=== PATIENT | female | born 1980 | race Hispanic/Latino ===

== ENCOUNTER 2022-07-29 12:58 | Emergency (ER) | payer MEDICARE, OTHER ==
[~2022-07-29] VITALS: Ht 154.9 cm; Wt 199.6 kg
[2022-07-29 13:00] VITALS: O2SAT 95
[2022-07-29] MEDS ORDERED: SODIUM CHLORIDE 0.9% 1000ML 1,000 ML IV STA (13:16)
[2022-07-29] MEDS ORDERED: ONDANSETRON HCL INJ 2MG/ML 2ML 2 MG/ML VIAL IV STA (13:23)
[2022-07-29] MEDS ORDERED: DICYCLOMINE HCL 20 MG/2 ML VIAL IM ONE (13:30)
[2022-07-29] MEDS ORDERED: ONDANSETRON HCL INJ 2MG/ML 2ML 2 MG/ML VIAL IV PRN (13:30)
[2022-07-29 13:40] LABS: BASOPHILS % 0.4 % (0.0-1.0); EOSINOPHILS # (AUTO) 0.2 (0.0-0.4); EOSINOPHILS % 2.8 % (0.0-6.0); HEMATOCRIT 31.6 % (34.2-44.1); HEMOGLOBIN 9.1 g/dL (12.0-16.0); LYMPHOCYTES # (AUTO) 1.9 (1.0-3.2); MEAN CORPUSCULAR HGB CONC 28.8 g/dL (31-35); MEAN CORPUSCULAR VOLUME 69.5 fL (81-99); MONOCYTES # (AUTO) 0.6 (0.2-0.8); NEUTROPHILS # (AUTO) 5.7 (2.1-6.9); NEUTROPHILS % 67.3 % (38.7-80.0); PLATELET COUNT 303 x10e3/uL (140-360); RED BLOOD COUNT 4.55 x10e6/uL (3.6-5.1); RED CELL DISTRIBUTION WIDTH 19.9 % (11.7-14.4)
[2022-07-29 13:58] LABS: ALBUMIN 2.9 g/dL (3.5-5.0); ALBUMIN/GLOBULIN RATIO 0.6 (0.8-2.0); ANION GAP 11.7 mmol/L (8-16); CALCIUM 8.2 mg/dL (8.4-10.2); CREATININE, SERUM 0.67 mg/dL (0.57-1.11); POTASSIUM 3.7 mmol/L (3.5-5.1)
[2022-07-29] MEDS ORDERED: IOPAMIDOL 370 MG/ML 100 ML INFUS..BTL INJ ONE (14:11)
[2022-07-29 16:21] LABS: CLARITY,URINE TURBID (CLEAR); COLOR,URINE RED (YELLOW); KETONES,URINE NEGATIVE (NEGATIVE); LEUKOCYTE ESTERASE ,URINE NEGATIVE (NEGATIVE); NITRITE,URINE NEGATIVE (NEGATIVE); PROTEIN,URINE DIPSTICK 1+ (NEGATIVE); URINE UROBILINOGEN 1 mg/dL (0.2 - 1)
[2022-07-29 16:22] LABS: BACTERIA,URINE RARE /HPF; EPITHELIAL CELLS,URINE RARE /LPF; RBC,URINE 21-50 /HPF (0-5); WBC,URINE (MAN) 0-5 /HPF (0-5)
[2022-07-29] MEDS ORDERED: ONDANSETRON ODT4 MG PO (16:49)
[2022-07-29] MEDS ORDERED: DICYCLOMINE HCL20 MG PO (16:49)
== END 2022-07-29 17:31 | disposition home or self-care (01) ==
LOC: ER 13:13
DX: R10.30 Lower abdominal pain, unspecified (principal); N94.89 Other specified conditions associated with female genital organs and menstrual cycle; K42.9 Umbilical hernia without obstruction or gangrene; R11.2 Nausea with vomiting, unspecified
CPT/HCPCS: 36415; 74177; 80053; 81001; 83690; 84702; 85025; 99284; C9113; J0500; J2405; J7030; Q9967

== ENCOUNTER 2023-04-26 22:00 | Emergency (ER) | payer OTHER ==
[~2023-04-26] VITALS: Ht 154.9 cm; Wt 204.1 kg
[~2023-04-26 22:00] MED LIST: DICYCLOMINE HCL20 MG PO; ONDANSETRON ODT4 MG PO
[2023-04-26] MEDS: ACETAMINOPHEN 325 MG TAB PO ONE (22:23)
[2023-04-26 22:38] LABS: INFLUENZAE A&B ANTIGEN (RAPID) POSITIVE FLU A (NEGATIVE); STREPTOCOCCUS GRP A ANTIGEN NEGATIVE (NEGATIVE)
[2023-04-26] MEDS ORDERED: XOFLUZA80 MG PO (22:41)
[2023-04-26 22:54] VITALS: BP 141/84; PULSE 71; RESP 18; TEMP 98.2; O2SAT 100
== END 2023-04-26 22:55 | disposition home or self-care (01) ==
LOC: ER 22:03
DX: R50.9 Fever, unspecified (principal); J10.1 Influenza due to other identified influenza virus with other respiratory manifestations; R05.9 Cough, unspecified; D64.9 Anemia, unspecified; Z11.52 Encounter for screening for COVID-19
CPT/HCPCS: 83518; 87070; 87400; 99283; U0002